=== PATIENT | female | born 1990 | race Caucasian/White ===

== ENCOUNTER 2018-09-04 18:37 | Emergency (ER) | payer OTHER ==
[~2018-09-04] VITALS: Ht 152.4 cm; Wt 42.0 kg
[2018-09-04 18:42] VITALS: Ht 152.4 cm; Wt 42.0 kg
[2018-09-04] MEDS ORDERED: ONDANSETRON (ODT) 4 MG TAB ODT STA (20:25)
[2018-09-04] MEDS ORDERED: KETOROLAC 30 MG INJ IM STA (20:25)
[2018-09-04] MEDS ORDERED: DIPHENHYDRAMINE 25 MG CAP PO ONE (20:30)
[2018-09-04] MEDS ORDERED: NAPR-985 PO (21:21)
[2018-09-04] MEDS ORDERED: ONDA4TAB14 PO (21:21)
[2018-09-04 21:31] VITALS: BP 112/68; PULSE 75; RESP 16
--- NOTE | 2018-09-05 01:13 | ERD ---
ER Documentation Chief Complaint Chief Complaint top of head going to blake-ocular hurts on/off x 6 mos, no recent trauma HPI 27-year-old female presents for headache for 1 day. Pain is localized to the forehead and behind the eyes. She reports gradual onset. She tried Advil with some relief. Current pain is rated 5/10 in severity. She has also had some nasal congestion. She denies any neck pain, fevers, chills, dizziness, syncope, or other symptoms at this time. Overall symptoms have improved. ROS All systems reviewed and are negative except as per history of present illness. Medications Home Meds Active Scripts Ondansetron (Ondansetron Odt) 4 Mg Tab.rapdis, 4 MG PO Q6H PRN for NAUSEA AND/OR VOMITING, #10 TAB Prov:COLLINS COWART PA-C 09/04/18 Naproxen* (Naprosyn*) 500 Mg Tablet, 500 MG PO BID PRN for PAIN AND/OR INFLAMMATION, #30 TAB Prov:COLLINS COWART PA-C 09/04/18 Allergies Allergies: Coded Allergies: No Known Allergy (Unverified , 09/04/18) PMhx/Soc History of Surgery: Yes (Chin/mouth surgery) Anesthesia Reaction: No Hx Neurological Disorder: Yes (migarine MARTÍNEZ) Hx Respiratory Disorders: No Hx Cardiac Disorders: No Hx Psychiatric Problems: No Hx Miscellaneous Medical Probl: No Hx Alcohol Use: No Hx Substance Use: No Hx Tobacco Use: No Smoking Status: Never smoker FmHx Family History: No diabetes Physical Exam Vitals Vital Signs Date Temp Pulse Resp B/P (MAP) Pulse Ox O2 O2 Flow FiO2 Time Delivery Rate 09/04/18 98.1 75 16 112/68 100 Room Air 21:31 (83) 09/04/18 98.2 87 18 114/59 96 18:42 (77) Physical Exam Const: No acute distress Head: Atraumatic Eyes: Normal Conjunctiva ENT: Normal External Ears, Nose and Mouth. Neck: Full range of motion. No meningismus. Resp: Clear to auscultation bilaterally Cardio: Regular rate and rhythm, no murmurs Skin: No petechiae or rashes Back: No midline or flank tenderness Ext: No cyanosis, or edema Neuro: M/S: Alert and oriented Face: EOMI, face and pharynx with normal sensation and function Motor: Normal strength throughout Sensation: Normal sensation throughout Speech: Normal Cerebel: Normal coordination Normal gait Normal finger to nose Psych: Normal Mood and Affect Results 24 hrs Laboratory Tests Test 09/04/18 20:35 POC Beta HCG, Qualitative NEGATIVE Current Medications Medications Dose Sig/Eduardo Start Time Status Last (Trade) Ordered Route PRN Stop Time Admin Dose Reason Admin Ketorolac 30 mg ONCE STAT 09/04/18 DC 09/04/18 Tromethamine IM 20:25 20:43 (Toradol) 09/04/18 20:26 25 mg ONCE ONCE 09/04/18 DC 09/04/18 Diphenhydrami PO 20:30 20:42 ne HCl 09/04/18 20:31 (Benadryl) Ondansetron 4 mg ONCE STAT 09/04/18 DC 09/04/18 HCl (Zofran ODT 20:25 20:35 Odt) 09/04/18 20:26 Procedures/MDM 27-year-old female presents to the emergency department complaining of headache. She had no meningeal signs. Vital signs are stable and she was afebrile and nontoxic and well-appearing. She is administered Toradol, Benadryl, Zofran with significant improvement of her symptoms. On reevaluation her pain was markedly decreased. Her neurological examination was benign and I doubt intracranial hemorrhage, mass, CVA, TIA, or other emergent conditions. The risks of CT head radiation outweighed the benefits at this time and the patient can follow-up with a neurologist as an outpatient for MRI. Patient will be discharged home in stable condition and was advised to return to the department immediately for any new or worsening or concerning symptoms. She understands and agrees with the plan. Departure Diagnosis: Primary Impression: Headache Condition: Fair Patient Instructions: Self-Care for Headaches Referrals: COMMUNITY CLINICS YOU HAVE RECEIVED A MEDICAL SCREENING EXAM AND THE RESULTS INDICATE THAT YOU DO NOT HAVE A CONDITION THAT REQUIRES URGENT TREATMENT IN THE EMERGENCY DEPARTMENT. FURTHER EVALUATION AND TREATMENT OF YOUR CONDITION CAN WAIT UNTIL YOU ARE SEEN IN YOUR DOCTORS OFFICE WITHIN THE NEXT 1-2 DAYS. IT IS YOUR RESPONSIBILITY TO MAKE AN APPOINTMENT FOR FOLOW-UP CARE. IF YOU HAVE A PRIMARY DOCTOR --you should call your primary doctor and schedule an appointment IF YOU DO NOT HAVE A PRIMARY DOCTOR YOU CAN CALL OUR PHYSICIAN REFERRAL HOTLINE AT IF YOU CAN NOT AFFORD TO SEE A PHYSICIAN YOU CAN CHOSE FROM THE FOLLOWING [facility] CL[facility] [address] [facility] [facility] [address] [facility]. [facility] [phone] [id number] [facility]. [facility] [address] [facility]. [facility] [address] [facility]. [facility] [address] Additional Instructions: Call your primary care doctor TOMORROW for an appointment during the next 1-2 days.See the doctor sooner or return here if your condition worsens before your appointment time. COLLINS COWART PA-C Sep 05, 2018 01:13
== END 2018-09-04 21:31 | disposition home or self-care (01) ==
LOC: FTE 18:37
DX: R51 Headache (principal)
CPT/HCPCS: 81025; 96372; J1885; Z7502; Z7610